=== PATIENT | female | born 1945 | race Caucasian/White ===

== ENCOUNTER 2017-09-04 10:44 | Emergency (ER) | payer MEDICARE, OTHER ==
[2017-09-04 11:28] VITALS: BP 147/68
[2017-09-04] MEDS ORDERED: Alum Hydrox/Mag Hydrox/Simeth 15 ML, Metoclopramide 5 MG, Lidocaine 2% 5 ML PO ONE ×3 (11:41)
--- NOTE | 2017-09-04 11:45 | EDM.PDOC ---
ED HPI GENERAL MEDICAL PROBLEM - General Chief Complaint: Gastrointestinal Problem Stated Complaint: PT FEELS BURNING IN STOMACH Time Seen by Provider: 09/04/17 11:35 Source of Information: Reports: Patient History Limitations: Reports: No Limitations - History of Present Illness INITIAL COMMENTS - FREE TEXT/NARRATIVE: HISTORY AND PHYSICAL: History of present illness: [Patient comes to the emergency room complaining of a burning feeling in her epigastric area for the past 2 days. Pain has been fairly constant in keeping her up at night. Her appetite has been mildly decreased. She has no pain to other areas of her abdomen no nausea or vomiting. Her bowel and bladder is normal. No sore throat or earaches. She has otherwise recently been well. Reports a history of hiatal hernia, GERD, gastric bypass. She takes omeprazole twice a day. She follows regularly with Dr. Reyes. She admits to smoking one pack of cigarettes per day, alcohol use a couple of times a year.] Review of systems: As per history of present illness and below otherwise all systems reviewed and negative. Past medical history: As per history of present illness and as reviewed below otherwise noncontributory. Surgical history: As per history of present illness and as reviewed below otherwise noncontributory. Social history: No reported history of drug or alcohol abuse. Family history: As per history of present illness and as reviewed below otherwise noncontributory. Physical exam: HEENT: Atraumatic, normocephalic. Lungs: Clear to auscultation, breath sounds equal bilaterally, chest nontender. Heart: S1S2, regular, negative for clicks, rubs, or JVD. Abdomen: Soft, nondistended, nontender. Negative for masses guarding or rebound.. Negative for costovertebral tenderness. Pelvis: Stable nontender. Genitourinary: Deferred. Rectal: Deferred. Extremities: Atraumatic. Neurovascular unremarkable. Neuro: Awake, alert, oriented. Motor and sensory unremarkable throughout. Exam nonfocal. Diagnostics: [CBC, CMP, amylase, lipase] Therapeutics: [GI cocktail ] Impression: [Epigastric pain] Plan: [Patient eloped from the emergency room before her epigastric pain could be reassessed and before lab results could be reviewed and conveyed to her.] Definitive disposition and diagnosis as appropriate pending reevaluation and review of above. Abdomen Pain Score (Numeric/FACES): 8 - Related Data Allergies Allergy/AdvReac Type Severity Reaction Status Date / Time celecoxib [From Celebrex] Allergy Hypertensio Verified 09/04/17 11:22 n cortisone [Cortisone] Allergy Swelling Verified 09/04/17 11:22 meperidine HCl [From Demerol] Allergy Anaphylactic Verified 09/04/17 11:22 Shock Tetracyclines Allergy Cannot Verified 09/04/17 11:22 Remember Home Meds: Home Meds Bp Med 04/15/14 [History] DULoxetine [Cymbalta] mg PO DAILY 04/15/14 [History] Gabapentin [Neurontin] mg PO 04/15/14 [History] Levothyroxine [Levothroid] mcg PO DAILY 04/15/14 [History] Multivitamins/Minerals [Vitamins and Minerals] 1 each PO 04/15/14 [History] metFORMIN [Glucophage] mg PO ASDIRECTED 04/15/14 [History] Past Medical History Gastrointestinal History: Reports: Hiatal Hernia Musculoskeletal History: Reports: Fibromyalgia - Past Surgical History Cardiovascular Surgical History: Reports: Other (See Below) Other Cardiovascular Surgeries/Procedures: "stent in left bicep" GI Surgical History: Reports: Bariatric Procedure, Cholecystectomy Female Surgical History: Reports: Hysterectomy Social & Family History - Tobacco Use Smoking Status *Q: Current Every Day Smoker Years of Tobacco use: 60 Packs/Tins Daily: 1 - Alcohol Use Days Per Week of Alcohol Use: 0 Number of Drinks Per Day: 1 Total Drinks Per Week: 0 - Recreational Drug Use Recreational Drug Use: No ED ROS GENERAL - Review of Systems Review Of Systems: ROS reveals no pertinent complaints other than HPI. ED EXAM, GI/ABD - Physical Exam Exam: See Below Course - Vital Signs Last Recorded V/S: Last Vital Signs Temp 98.2 F 09/04/17 11:22 Pulse 72 09/04/17 11:22 Resp 16 09/04/17 11:22 BP 147/68 H 09/04/17 11:22 Pulse Ox 95 09/04/17 11:22 - Orders/Labs/Meds Labs: Laboratory Tests 09/04/17 09/04/17 Range/Units 12:15 12:15 WBC 10.74 (4.0-11.0) K/uL RBC 4.63 (4.30-5.90) M/uL Hgb 13.8 (12.0-16.0) g/dL Hct 43.4 (36.0-46.0) % MCV 93.7 (80.0-98.0) fL MCH 29.8 (27.0-32.0) pg MCHC 31.8 (31.0-37.0) g/dL RDW Std Deviation 47.3 (28.0-62.0) fl RDW Coeff of Jose Luis 14 (11.0-15.0) % Plt Count 218 (150-400) K/uL MPV 11.10 (7.40-12.00) fL Neut % (Auto) 76.1 (48.0-80.0) % Lymph % (Auto) 16.4 (16.0-40.0) % [place] % (Auto) 6.7 (0.0-15.0) % Eos % (Auto) 0.7 (0.0-7.0) % Baso % (Auto) 0.1 (0.0-1.5) % Neut # (Auto) 8.2 H (1.4-5.7) K/uL Lymph # (Auto) 1.8 (0.6-2.4) K/uL [place] # (Auto) 0.7 (0.0-0.8) K/uL Eos # (Auto) 0.1 (0.0-0.7) K/uL Baso # (Auto) 0.0 (0.0-0.1) K/uL Nucleated RBC % 0.0 /100WBC Nucleated RBCs # 0 K/uL Sodium 142 (136-146) mmol/L Potassium 4.5 (3.5-5.1) mmol/L Chloride 110 (98-110) mmol/L Carbon Dioxide 24 (21-31) mmol/L BUN 23 (6.0-23.0) mg/dL Creatinine 0.8 (0.6-1.5) mg/dL Est Cr Clr Drug Dosing 58.88 mL/min Estimated GFR (MDRD) > 60.0 ml/min Glucose 226 H (60-110) mg/dL Calcium 8.8 (8.8-10.8) mg/dL Total Bilirubin 0.5 (0.1-1.5) mg/dL AST 15 (5-40) IU/L ALT 15 (8-54) IU/L Alkaline Phosphatase 101 (40-150) Total Protein 6.2 (6.0-8.0) g/dL Albumin 3.8 (3.4-4.8) g/dL Globulin 2.4 (2.0-3.5) g/dL Albumin/Globulin Ratio 1.6 (1.3-2.8) Amylase 39 (10-90) U/L Lipase 19 (7-80) U/L Meds: Medications Discontinued Medications Generic Name Dose Route Start Last Admin Trade Name Freq PRN Reason Stop Dose Admin Al Hydroxide/Mg Hydroxide 15 0 ml 09/04/17 11:41 09/04/17 12:21 ml/ Metoclopramide HCl 5 mg/ PO 09/04/17 11:42 25 each Lidocaine HCl 5 ml ONETIME ONE Administration Departure - Departure Time of Disposition: 11:30 Disposition: Eloped 07 Clinical Impression: Epigastric pain - Discharge Information Referrals: Gordon Reyes MD [Primary Care Provider] - Forms: ED Department Discharge
[2017-09-04 12:58] LABS: CHLORIDE,CL 110 mmol/L (98-110); SODIUM,NA 142 mmol/L (136-146)
== END 2017-09-04 13:13 | disposition left against medical advice (07) ==
LOC: MW.ED 10:44
DX: R10.13 Epigastric pain (principal); F17.210 Nicotine dependence, cigarettes, uncomplicated; Z90.49 Acquired absence of other specified parts of digestive tract; Z90.710 Acquired absence of both cervix and uterus; Z79.899 Other long term (current) drug therapy; Z88.1 Allergy status to other antibiotic agents; Z88.5 Allergy status to narcotic agent; Z88.8 Allergy status to other drugs, medicaments and biological substances
CPT/HCPCS: 36415; 80053; 82150; 83690; 85025; 99284; A9270; 99282

== ENCOUNTER 2017-09-06 05:03 | Emergency (ER) | payer MEDICARE, OTHER ==
--- NOTE | 2017-09-06 05:18 | EDM.PDOC ---
ED HPI GENERAL MEDICAL PROBLEM - General Chief Complaint: Gastrointestinal Problem Stated Complaint: PT FEELS BURNING IN STOMACH, BLOODY STOOLS Time Seen by Provider: 09/06/17 05:25 - History of Present Illness INITIAL COMMENTS - FREE TEXT/NARRATIVE: HISTORY AND PHYSICAL: History of present illness: [72-year-old female presenting to emergency department with chief complaint of burning epigastric pain 5 days with past medical history of fibromyalgia, type 2 diabetes, and hypothyroidism. Patient states that she started having epigastric pain Sunday that was worse at nighttime. Is located in the epigastric region. She was seen here on 09/04 for similar complaints. She states that the GI cocktail that they did give her last time seemed to help but her pain came back again and this time she has noticed dark tarry stools. She does see Dr. Reyes and states that she has an appointment scheduled for 09/13/17. Primary reason she came to the emergency department is that she wants definitive treatment or at least someone that can refer her to someone who can give her definitive treatment for her epigastric pain. I told patient that she does most likely need an EGD but that would have to be performed by surgeon in an outpatient basis. Patient does admit to currently smoking and having a [id number] history. She drinks occasionally. She does have a history of fibromyalgia as well as type 2 diabetes and hypothyroidism. Patient currently denies any chest pain, palpitations, shortness of breath, syncopal episodes, focal neurologic deficits.] Review of systems: As per history of present illness and below otherwise all systems reviewed and negative. Past medical history: As per history of present illness and as reviewed below otherwise noncontributory. Surgical history: As per history of present illness and as reviewed below otherwise noncontributory. Social history: No reported history of drug or alcohol abuse. Family history: As per history of present illness and as reviewed below otherwise noncontributory. Physical exam: HEENT: Atraumatic, normocephalic, pupils reactive, negative for conjunctival pallor or scleral icterus, mucous membranes moist, throat clear, neck supple, nontender, trachea midline. Lungs: Clear to auscultation, breath sounds equal bilaterally, chest nontender. Heart: S1S2, regular, negative for clicks, rubs, or JVD. Abdomen: Soft, nondistended, nontender. Negative for masses or hepatosplenomegaly. Negative for costovertebral tenderness. Pelvis: Stable nontender. Genitourinary: Deferred. Rectal: Deferred. Extremities: Atraumatic, negative for cords or calf pain. Neurovascular unremarkable. Neuro: Awake, alert, oriented. Cranial nerves II through XII unremarkable. Cerebellum unremarkable. Motor and sensory unremarkable throughout. Exam nonfocal. Diagnostics: [CBC, CMP, UA, UC, lipase] Therapeutics: [1 L normal saline, famotidine, GI cocktail] Impression: [Gastritis versus peptic ulcer disease] Plan: [CBC, CMP, UA, UC, lipase were all unremarkable. Patient did get significant relief from the GI cocktail as well as famotidine. I discharged the patient with a prescription for Protonix as well as Carafate. We also set her up to see one of the surgeons as she most likely should receive an EGD. She also has a follow-up appointment with her primary care physician Dr. Reyes on 09/13/17. Patient was instructed to return to emergency department if she had any new or worsening symptoms. All questions were entertained an answered. Patient was discharged in good condition.] abdominal/chest Pain Score (Numeric/FACES): 8 - Related Data Allergies Allergy/AdvReac Type Severity Reaction Status Date / Time celecoxib [From Celebrex] Allergy Hypertensio Verified 09/06/17 05:20 n cortisone [Cortisone] Allergy Swelling Verified 09/06/17 05:20 meperidine HCl [From Demerol] Allergy Anaphylactic Verified 09/06/17 05:20 Shock Tetracyclines Allergy Cannot Verified 09/06/17 05:20 Remember Home Meds: Home Meds Bp Med 04/15/14 [History] Gabapentin [Neurontin] mg PO 04/15/14 [History] Levothyroxine [Levothroid] mcg PO DAILY 04/15/14 [History] Multivitamins/Minerals [Vitamins and Minerals] 1 each PO 04/15/14 [History] metFORMIN [Glucophage] mg PO ASDIRECTED 04/15/14 [History] Past Medical History Gastrointestinal History: Reports: Hiatal Hernia Musculoskeletal History: Reports: Fibromyalgia - Past Surgical History Cardiovascular Surgical History: Reports: Other (See Below) Other Cardiovascular Surgeries/Procedures: "stent in left bicep" GI Surgical History: Reports: Bariatric Procedure, Cholecystectomy Female Surgical History: Reports: Hysterectomy Social & Family History - Tobacco Use Smoking Status *Q: Current Every Day Smoker Years of Tobacco use: 60 Packs/Tins Daily: 1 - Alcohol Use Days Per Week of Alcohol Use: 0 Number of Drinks Per Day: 1 Total Drinks Per Week: 0 - Recreational Drug Use Recreational Drug Use: No ED ROS GENERAL - Review of Systems Review Of Systems: See Below ED EXAM, GENERAL - Physical Exam Exam: See Below Course - Vital Signs Last Recorded V/S: Last Vital Signs Temp 96.8 F 09/06/17 05:22 Pulse 86 09/06/17 05:22 Resp 16 09/06/17 05:22 BP 127/59 L 09/06/17 05:22 Pulse Ox 96 09/06/17 05:22 - Orders/Labs/Meds Orders: Active Orders 24 hr Category Date Time Status CULTURE URINE [RM] Stat Lab 09/06/17 05:40 Received Sodium Chloride 0.9% [Saline Flush] Med 09/06/17 05:20 Active 10 ml FLUSH ASDIRECTED PRN Sodium Chloride 0.9% [Saline Flush] Med 09/06/17 05:20 Active 2.5 ml FLUSH ASDIRECTED PRN Saline Lock Insert [OM.PC] Stat Oth 09/06/17 05:20 Ordered Medication Orders Sodium Chloride (Saline Flush) 10 ml FLUSH ASDIRECTED PRN PRN Reason: Keep Vein Open Last Admin: 09/06/17 05:38 Dose: 10 ml Sodium Chloride (Saline Flush) 2.5 ml FLUSH ASDIRECTED PRN PRN Reason: Keep Vein Open Last Admin: 09/06/17 05:38 Dose: 2.5 ml Labs: Laboratory Tests 09/06/17 09/06/17 09/06/17 Range/Units 05:39 05:39 05:40 WBC 10.50 (4.0-11.0) K/uL RBC 4.34 (4.30-5.90) M/uL Hgb 13.1 (12.0-16.0) g/dL Hct 40.5 (36.0-46.0) % MCV 93.3 (80.0-98.0) fL MCH 30.2 (27.0-32.0) pg MCHC 32.3 (31.0-37.0) g/dL RDW Std Deviation 46.8 (28.0-62.0) fl RDW Coeff of Jose Luis 14 (11.0-15.0) % Plt Count 221 (150-400) K/uL MPV 11.50 (7.40-12.00) fL Neut % (Auto) 67.0 (48.0-80.0) % Lymph % (Auto) 23.9 (16.0-40.0) % [place] % (Auto) 7.1 (0.0-15.0) % Eos % (Auto) 1.7 (0.0-7.0) % Baso % (Auto) 0.3 (0.0-1.5) % Neut # (Auto) 7.0 H (1.4-5.7) K/uL Lymph # (Auto) 2.5 H (0.6-2.4) K/uL [place] # (Auto) 0.8 (0.0-0.8) K/uL Eos # (Auto) 0.2 (0.0-0.7) K/uL Baso # (Auto) 0.0 (0.0-0.1) K/uL Nucleated RBC % 0.0 /100WBC Nucleated RBCs # 0 K/uL Sodium 145 (136-146) mmol/L Potassium 4.2 (3.5-5.1) mmol/L Chloride 112 H (98-110) mmol/L Carbon Dioxide 22 (21-31) mmol/L BUN 30 H (6.0-23.0) mg/dL Creatinine 0.8 (0.6-1.5) mg/dL Est Cr Clr Drug Dosing 58.88 mL/min Estimated GFR (MDRD) > 60.0 ml/min Glucose 228 H (60-110) mg/dL Calcium 8.9 (8.8-10.8) mg/dL Total Bilirubin 0.4 (0.1-1.5) mg/dL AST 14 (5-40) IU/L ALT 19 (8-54) IU/L Alkaline Phosphatase 103 (40-150) Total Protein 6.2 (6.0-8.0) g/dL Albumin 3.7 (3.4-4.8) g/dL Globulin 2.5 (2.0-3.5) g/dL Albumin/Globulin Ratio 1.5 (1.3-2.8) Lipase 16 (7-80) U/L Urine Color YELLOW Urine Appearance HAZY Urine pH 6.0 (5.0-8.0) Ur Specific [place] 1.010 (1.001-1.035) Urine Protein NEGATIVE (NEGATIVE) mg/dL Urine Glucose (UA) NEGATIVE (NEGATIVE) mg/dL Urine Ketones TRACE H (NEGATIVE) mg/dL Urine Occult Blood TRACE-LYSED (NEGATIVE) Urine Nitrite NEGATIVE (NEGATIVE) Urine Bilirubin NEGATIVE (NEGATIVE) Urine Urobilinogen 1.0 (<2.0) EU/dL Ur Leukocyte Esterase SMALL (NEGATIVE) Urine RBC 1-3 (0-2/HPF) Urine WBC 10-12 (0-5/HPF) Ur Epithelial Cells FEW (NONE-FEW) Urine Bacteria FEW (NEGATIVE) Meds: Medications Generic Name Dose Route Start Last Admin Trade Name Freq PRN Reason Stop Dose Admin Sodium Chloride 10 ml 09/06/17 05:20 09/06/17 05:38 Saline Flush FLUSH 10 ml ASDIRECTED PRN Administration Keep Vein Open Sodium Chloride 2.5 ml 09/06/17 05:20 09/06/17 05:38 Saline Flush FLUSH 2.5 ml ASDIRECTED PRN Administration Keep Vein Open Discontinued Medications Generic Name Dose Route Start Last Admin Trade Name Freq PRN Reason Stop Dose Admin Al Hydroxide/Mg Hydroxide 15 0 ml 09/06/17 05:47 09/06/17 05:52 ml/ Lidocaine HCl 5 ml PO 09/06/17 05:48 20 each ONETIME ONE Administration Famotidine 20 mg 09/06/17 05:42 09/06/17 05:52 Pepcid IVPUSH 09/06/17 05:43 20 mg ONETIME ONE Administration Sodium Chloride 1,000 mls @ 999 mls/hr 09/06/17 05:20 09/06/17 05:38 Normal Saline IV 09/06/17 06:20 999 mls/hr .Bolus ONE Administration Departure - Departure Time of Disposition: 06:53 Disposition: Home, Self-Care 01 Condition: Good Clinical Impression: GERD (gastroesophageal reflux disease) - Discharge Information Instructions: Peptic Ulcer, [id number] Referrals: Gordon Reyes MD [Primary Care Provider] - Forms: ED Department Discharge Additional Instructions: My general discharge The following information is given to patients seen in the emergency department who are being discharged to home. This information is to outline your options for follow-up care. We provide all patients seen in our emergency department with a follow-up referral. The need for follow-up, as well as the timing and circumstances, are variable depending upon the specifics of your emergency department visit. If you don't have a primary care physician on staff, we will provide you with a referral. We always advise you to contact your personal physician following an emergency department visit to inform them of the circumstance of the visit and for follow-up with them and/or the need for any referrals to a consulting specialist. The emergency department will also refer you to a specialist when appropriate. This referral assures that you have the opportunity for follow-up care with a specialist. All of these measure are taken in an effort to provide you with optimal care, which includes your follow-up. Under all circumstances we always encourage you to contact your private physician who remains a resource for coordinating your care. When calling for follow-up care, please make the office aware that this follow-up is from your recent emergency room visit. If for any reason you are refused follow-up, please contact the [facility] Emergency Department at and asked to speak to the emergency department charge nurse. My General Surgery [facility] Specialty Care - General Surgery Professional Building [address] [place] [address], [address] [place] [address] [place] [address] - My Orders Last 24 Hours: My Active Orders 09/06/17 05:20 Sodium Chloride 0.9% [Saline Flush] 10 ml FLUSH ASDIRECTED PRN Sodium Chloride 0.9% [Saline Flush] 2.5 ml FLUSH ASDIRECTED PRN Saline Lock Insert [OM.PC] Stat 09/06/17 05:40 CULTURE URINE [RM] Stat - Assessment/Plan Last 24 Hours: My Active Orders 09/06/17 05:20 Sodium Chloride 0.9% [Saline Flush] 10 ml FLUSH ASDIRECTED PRN Sodium Chloride 0.9% [Saline Flush] 2.5 ml FLUSH ASDIRECTED PRN Saline Lock Insert [OM.PC] Stat 09/06/17 05:40 CULTURE URINE [RM] Stat
[2017-09-06] MEDS ORDERED: Sodium Chloride 0.9% 2.5 ML Syringe FLUSH PRN (05:20)
[2017-09-06] MEDS ORDERED: Sodium Chloride 0.9% 1,000 ML IV ONE (05:20)
[2017-09-06] MEDS ORDERED: Sodium Chloride 0.9% 10 ML Syringe FLUSH PRN (05:20)
[2017-09-06] MEDS ORDERED: Famotidine 20 MG/2 ML SDV IVPUSH ONE (05:42)
[2017-09-06] MEDS ORDERED: Alum Hydrox/Mag Hydrox/Simeth 15 ML, Lidocaine 2% 5 ML PO ONE ×2 (05:47)
[2017-09-06 06:05] LABS: CHLORIDE,CL 112 mmol/L (98-110); SODIUM,NA 145 mmol/L (136-146)
[2017-09-06 07:16] VITALS: BP 124/68
== END 2017-09-06 07:10 | disposition home or self-care (01) ==
LOC: MW.ED 05:03
DX: K21.9 Gastro-esophageal reflux disease without esophagitis (principal); E11.9 Type 2 diabetes mellitus without complications; E03.9 Hypothyroidism, unspecified; F17.210 Nicotine dependence, cigarettes, uncomplicated; Z88.8 Allergy status to other drugs, medicaments and biological substances; Z88.1 Allergy status to other antibiotic agents; Z79.899 Other long term (current) drug therapy
CPT/HCPCS: 36415; 80053; 81001; 83690; 85025; 87086; 96361; 96374; 99284; A9270; J7040; 87088; 87186